=== PATIENT | female | born 1985 | race Caucasian/White ===

== ENCOUNTER 2017-05-08 10:27 | Emergency (ER) | payer OTHER ==
[~2017-05-08] VITALS: Ht 170.2 cm; Wt 93.0 kg
[~2017-05-08 10:27] MED LIST: ADDERALL XR 1010 MG PO; ADDERALL5 MG PO; AMOXICILLIN500 M1 PO; AMPHETAMINE SALT5 MG PO; MOTRIN800 MG PO; VICODIN 5-3001 EACH PO; [UNRECOGNIZED DRUG - OTHER] PO
[2017-05-08 10:51] LABS: HEMATOCRIT 42.9 % (36.0-46.0); MCH 32.7 PG (29.0-34.0); MCHC 33.6 G/DL (30.0-36.0); MCV 97.3 FL (83-99); MEAN PLAT.VOLUME 11.2 uM^3 (9.5-12.4); PLATELET COUNT 168 K/uL (156-360); RBC DIS.WIDTH-CV 12.1 % (11.8-14.6); RED BLOOD COUNT 4.41 M/uL (3.80-5.20)
[2017-05-08 11:02] LABS: CHLORIDE 107 mEq/L (99-109); SODIUM 141 mEq/L (136-147)
[2017-05-08 11:04] LABS: GLUCOSE 92 mg/dL (70-99)
[2017-05-08 11:05] LABS: ANION GAP 10 MEQ/L (2-14)
[2017-05-08 11:08] LABS: GFR ESTIMATE (CALCULATED) > 59 mL/min/
[2017-05-08 11:09] LABS: UREA NITROGEN (BUN) 8 mg/dL (9-23)
[2017-05-08 11:12] LABS: TROP-I INTERPRETATION NEGATIVE; TROPONIN-I < 0.01 ng/mL (0.0-0.30)
[2017-05-08] MEDS ORDERED: MOTRIN800 MG PO (14:03)
[2017-05-08] MEDS ORDERED: VENTOLIN HFA18 GM IH (14:03)
[2017-05-08 15:17] LABS: TROP-I INTERPRETATION NEGATIVE; TROPONIN-I < 0.01 ng/mL (0.0-0.30)
[2017-05-08 15:39] VITALS: BP 118/88
== END 2017-05-08 15:41 | disposition home or self-care (01) ==
LOC: EME 10:27
PROVIDERS: Nurse Practitioner Family
DX: R07.2 Precordial pain (principal); J06.9 Acute upper respiratory infection, unspecified; F17.200 Nicotine dependence, unspecified, uncomplicated; Z90.49 Acquired absence of other specified parts of digestive tract
CPT/HCPCS: 71020; 80048; 84484; 85027; 93005; 94640; 99281; 99284